=== PATIENT | female | born 1975 | race Two or more races ===

== ENCOUNTER 2017-06-22 21:01 | Emergency (ER) | payer MEDICAID ==
[~2017-06-22] VITALS: Ht 154.9 cm; Wt 65.8 kg
[2017-06-22 21:20] VITALS: BP 118/88
== END 2017-06-23 00:30 | disposition left against medical advice (07) ==
LOC: ER 21:01
DX: M79.604 Pain in right leg (principal); Z53.21 Procedure and treatment not carried out due to patient leaving prior to being seen by health care provider

== ENCOUNTER 2017-07-27 12:17 | Emergency (ER) | payer MEDICAID ==
[~2017-07-27] VITALS: Ht 154.9 cm; Wt 65.8 kg
[2017-07-27 12:40] VITALS: BP 103/71
[2017-07-27] MEDS ORDERED: KETOROLAC TROMETH 60MG/2ML VIAL IM ONE (14:45)
[2017-07-27] MEDS ORDERED: METHOCARBAMOL 500 MG TAB PO ONE (14:45)
== END 2017-07-27 15:55 | disposition home or self-care (01) ==
LOC: ER 12:17
DX: M25.552 Pain in left hip (principal); M25.572 Pain in left ankle and joints of left foot; Z90.49 Acquired absence of other specified parts of digestive tract; Z98.51 Tubal ligation status
CPT/HCPCS: 73502; 81025; 96372; 99284; J1885